=== PATIENT | female | born 1945 | race Hispanic/Latino ===

== ENCOUNTER 2020-07-15 21:06 | Inpatient (IN) | payer MEDICARE ==
[2020-07-16] MEDS ORDERED: ACETAMINOPHEN 500 MG TAB PO PRN (08:00)
[2020-07-16] MEDS: DULoxetine 30 MG CAP PO SCH (13:23)
[2020-07-16] MEDS: clonazePAM 0.5 MG TAB PO SCH ×2 (13:23→22:23)
[2020-07-16] MEDS: DOCUSATE SODIUM 100 MG CAP PO SCH ×2 (13:23→22:23)
[2020-07-16] MEDS: MELOXICAM 7.5 MG TAB PO SCH (13:23)
--- NOTE | 2020-07-16 13:39 | Consultation ---
History of Present Illness - Reason for Consult Consult date: 07/16/20 Requesting physician: LEX CAMPOS - History of Present Illness 75 YO Female with Obesity, Vascular Dementia, Cerebral Atherosclerosis, CAD admitted to [facility] psych unit for Psychiatric stabilization. Consult placed by Dr. Campos for medical management. Patient seen and evaluated in the recreation room. Patient cooperative with examiner interview. Patient denies fever, chills, chest pain, palpitation, productive cough, recent ill contacts. Patient currently asymptomatic with previous COVID-19 infection. No reported nursing events. Past History Past Medical History: CAD, other (See HPI) Past Surgical History: No surgical history, Other (Reviewed) Social history: single. denies: smoking, alcohol abuse, prescription drug abuse Family history: hypertension Medications and Allergies Allergies Allergy/AdvReac Type Severity Reaction Status Date / Time No Known Allergies Allergy Unverified 07/16/20 05:14 Home Medications Medication Instructions Recorded Confirmed Last Taken Type Acetaminophen [Non-Aspirin Extra 1,000 mg PO PRN 07/16/20 07/16/20 Unknown History Strength] DULoxetine [Cymbalta] 60 mg PO QDAY 07/16/20 07/16/20 Unknown History Docusate Sodium [Colace] 100 mg PO BID 07/16/20 07/16/20 Unknown History Meloxicam [Mobic] 7.5 mg PO QDAY 07/16/20 07/16/20 Unknown History clonazePAM [Klonopin] 1 mg PO BID 07/16/20 07/16/20 Unknown History Active Meds: Active Medications Acetaminophen (Tylenol) 1,000 mg PO Q6H PRN PRN Reason: Pain, Mild (1-3) Clonazepam (Klonopin) 1 mg PO BID [facility] Last Admin: 07/16/20 13:23 Dose: Not Given Documented by: Docusate Sodium (Colace) 100 mg PO BID [facility] Last Admin: 07/16/20 13:23 Dose: Not Given Documented by: Duloxetine HCl (Cymbalta) 60 mg PO QDAY [facility] Last Admin: 07/16/20 13:23 Dose: Not Given Documented by: Melatonin (Melatonin) 5 mg PO QHS PRN PRN Reason: Sleep Meloxicam (Mobic) 7.5 mg PO QDAY [facility] Last Admin: 07/16/20 13:23 Dose: Not Given Documented by: Trazodone HCl (Desyrel) 50 mg PO QHS [facility] Review of Systems Constitutional: no weight loss, no weight gain, no fever Ears, nose, mouth and throat: no ear pain, no ear discharge, no nasal congestion Breasts: no change in shape Cardiovascular: no chest pain, no orthopnea, no rapid/irregular heart beat, no edema, no lightheadedness Respiratory: no cough, no excessive sputum, no hemoptysis Gastrointestinal: no abdominal pain, no vomiting Genitourinary Female: no dysuria, no urinary frequency, no urgency Rectal: no pain, no incontinence, no bleeding Musculoskeletal: no neck pain, no shooting arm pain, no shooting leg pain Integumentary: no pruritis, no wounds, no jaundice, no boils Neurological: no paralysis, no weakness, no numbness, no tingling, no seizures Psychiatric: no memory loss, no insomnia, no change in appetite Endocrine: no cold intolerance, no heat intolerance, no excessive thirst, no polydipsia, no nocturia, no excessive sweating Hematologic/Lymphatic: no easy bruising Allergic/Immunologic: no urticaria, no wheezing Exam - Constitutional General appearance: Present: obese - EENT Eyes: Present: PERRL ENT: hearing intact, clear oral mucosa - Neck Neck: Present: supple, normal ROM - Respiratory Respiratory effort: normal Respiratory: bilateral: CTA - Cardiovascular Heart Sounds: Present: S1 & S2. Absent: rub, click - Extremities Extremities: pulses symmetrical, No edema Peripheral Pulses: within normal limits - Abdominal General gastrointestinal: Present: soft, non-tender, non-distended, normal bowel sounds Female genitourinary: Present: normal - Integumentary Integumentary: Present: clear, warm, dry - Musculoskeletal Musculoskeletal: gait normal, strength equal bilaterally - Psychiatric Psychiatric: appropriate mood/affect, intact judgment & insight - Neurologic Neurologic: CNII-XII intact, moves all extremities Assessment and Plan - Patient Problems (1) Vascular dementia Current Visit: Yes Status: Acute Qualifiers: Dementia behavioral disturbance: with behavioral disturbance Qualified Code(s): F01.51 - Vascular dementia with behavioral disturbance Plan to address problem: Verbal prompting, verbal redirection, supportive care, benzodiazepine therapy PRN. (2) Cerebral atherosclerosis Current Visit: Yes Status: Acute Plan to address problem: Risk factor reduction therapy, antiplatelet therapy, supportive care. (3) Obesity Current Visit: Yes Status: Acute Plan to address problem: Balanced diet, increase physical activity at discharge. (4) Coronary artery disease Current Visit: Yes Status: Acute Qualifiers: Associated angina: without angina Plan to address problem: Balanced diet, risk factor reduction therapy, statin therapy as clinically indicated. (5) UTI (urinary tract infection) Current Visit: Yes Status: Acute Qualifiers: Encounter type: initial encounter Plan to address problem: Continue Macrobid for 7 days.
[2020-07-16 17:58] LABS: Bacteria,Urine 1+ /HPF (Negative); Mucus,Urine 3+ /HPF
[2020-07-16 18:09] LABS: Bilirubin,Urine NEG (Negative); Blood,Urine SM (Negative); Color,Urine Yellow (Yellow); Hyaline Casts,Urine 12 /LPF; Protein,Urine <15 mg/dL mg/dL (Negative); Urobilinogen,Urine < 2.0 mg/dL (<2.0)
[2020-07-16] MEDS ORDERED: MELATONIN 5 MG TAB PO PRN (22:00)
[2020-07-16] MEDS: traZODone 50 MG TAB PO SCH (22:23)
--- NOTE | 2020-07-17 07:42 | History and Physical Report ---
GP History & Physical - History of Present Illness Date of admission: 07/16/20 Date of Examination: 07/17/20 History of Present Illness: HPI Patient is a 75 year old retired female who lives alone with past psychiatric history of depression and anxiety and significant past medical history of coronary artery disease who presented to [facility] after daughter found her at home sitting next to alert appears to saying she wanted to end her life. Patient reports she has been feeling very lonely depressed and sad, states she has children who does not really seem to check up on her or care about her. Says her daughter works most of the time but she to some extent checks up on her but her sons do not since she has been living alone she has been having so many thoughts which was also complicated by recent diagnosis of COVID-19. Patient endorses nightmares, she is usually had dreams that would like [place] celebration or trip with family but at end of dreams she ends up alone, afraid and confused. Patient reported poor energy and decreased interest in doing activities. Endorsed having suicidal thoughts when she was found. PATIENT WAS SEEN WITH FULL MASK and GOWN Per Transfer note: " Ms. Bermeo had reported to initial ED Provider that she has been feeling very sad for the last 2 moths, and does not know why, amd endorses a feeling of wanting to end her life and that she would like to shoot self". PAST PSYCHIATRIC HISTORY: Diagnoses: depression and anxiety Suicide attempts or Self-harm behavior Yes Prior psychiatric hospitalizations: Yes Substance Abuse history: None reported Previous psychiatric medications tried: Yes cymbalta Outpatient treatment: yes PAST MEDICAL HISTORY: CAD Family Psychiatric History: None reported or documented SOCIAL HISTORY Marital Status: Living Arrangements: With self Employment Status: Retired Access to guns/weapons: Yes Education: High school History of Abuse:None reported Legal History: REVIEW OF SYSTEMS Constitutional: Negative for weight loss ENT: Negative for stridor Respiratory: Negative for cough or hemoptysis All other systems reviewed and are negative MENTAL STATUS EXAMINATION General Appearance and Behavior: Age appropriate, good hygiene, wearing appropriate clothes, lying in bed, good eye contact, cooperative politee with questioning. Cooperation: Participating/engaged, Psychomotor Behavior: , unremarkable and within normal limits Mood: Depressed, Affect and affective range: decreased range, depressed Thought Process: Fluent/Logical, Thought Content: Within reality Speech: Normal volume, Regular rate and rhythm, Intellectual Functioning: Average Suicidal Ideation: Suicidal Homicidal Ideation: Denies HI Impulse Control: Impaired/Unimpaired Insight and Judgment: Normal insight and judgment Memory: Normal, Attention: Normal Orientation: Alert, oriented, anxious Patient scored 27 on her SLUMS EXAM Assessment and Plan - Psychiatric problem (1) MDD (major depressive disorder) Current Visit: Yes Status: Acute Treatment Plan Restarted home medications Patient admitted for inpatient psychiatric evaluation, medication adjustment and close monitoring The patient's behavior, mood, sleep and appetite will be closely monitored. Patient enrolled in individual and group therapeutic sessions and encouraged to attend. Patient provided with a safe and structured environment. Patient's physical health needs will be addressed by the Hospitalist. Hospitalist Consulted Labs including CBC, CMP, Lipid profile and Hemoglobin A1C levels ordered for baseline reference Social Assessment will be completed and the [facility] Treater will work with patient and family to ensure a suitable and safe disposition Medication adjustment will be made as clinically indicated Usual Wellness Hindu/Preservation: - Start Trazodone 50 mg po QHS & 50 mg po QHS PRN between 10 PM & 2 AM for insomnia - Start Melatonin 5 mg po QHS to promote circadian rhythm - Start [place]-3 for brain health, reduce impulsivity, and as adjunctive treatment for mood disorder, continue upon discharge given overall benefits. - Start B1 prophylaxis with 200 mg po for 5 days The patient agreed on the treatment plan, understood the risk, benefit, alternative treatment, potential consequence of no treatment, and gave informed consent. Initial Certification Inpatient psych services: I certify that the inpatient psychiatric services are required for treatment that could reasonably be expected to improve the patient's condition. Estimated days: 7 Post hospital care: primary care provider, psychiatric provider Legal Status: Voluntary Patient Problems: Current Active Problems MDD (major depressive disorder) (Acute) Reaction to Hospitalization: Accepting Medications and Allergies Allergies Allergy/AdvReac Type Severity Reaction Status Date / Time No Known Allergies Allergy Unverified 07/16/20 05:14 Home Medications Medication Instructions Recorded Confirmed Last Taken Type Acetaminophen [Non-Aspirin Extra 1,000 mg PO PRN 07/16/20 07/16/20 Unknown History Strength] DULoxetine [Cymbalta] 60 mg PO QDAY 07/16/20 07/16/20 Unknown History Docusate Sodium [Colace] 100 mg PO BID 07/16/20 07/16/20 Unknown History Meloxicam [Mobic] 7.5 mg PO QDAY 07/16/20 07/16/20 Unknown History clonazePAM [Klonopin] 1 mg PO BID 07/16/20 07/16/20 Unknown History Active Meds: Active Medications Acetaminophen (Tylenol) 1,000 mg PO Q6H PRN PRN Reason: Pain, Mild (1-3) Clonazepam (Klonopin) 1 mg PO BID [facility] Last Admin: 07/16/20 22:23 Dose: 1 mg Documented by: Docusate Sodium (Colace) 100 mg PO BID [facility] Last Admin: 07/16/20 22:23 Dose: 100 mg Documented by: Duloxetine HCl (Cymbalta) 60 mg PO QDAY [facility] Last Admin: 07/16/20 13:23 Dose: Not Given Documented by: Melatonin (Melatonin) 5 mg PO QHS PRN PRN Reason: Sleep Meloxicam (Mobic) 7.5 mg PO QDAY [facility] Last Admin: 07/16/20 13:23 Dose: Not Given Documented by: Trazodone HCl (Desyrel) 50 mg PO QHS [facility] Last Admin: 07/16/20 22:23 Dose: 50 mg Documented by: Results - Results Labs/Vitals: Laboratory Last Values POC Glucose 91 (70-105) 07/16/20 23:38 Urine Color Yellow (Yellow) 07/16/20 Unknown Urine Turbidity Slightly-cloudy (Clear) 07/16/20 Unknown Urine pH 5.0 (5.0-7.0) 07/16/20 Unknown Ur Specific [place] 1.024 (1.003-1.030) 07/16/20 Unknown Urine Protein <15 mg/dl mg/dL (Negative) 07/16/20 Unknown Urine Glucose (UA) Neg mg/dL (Negative) 07/16/20 Unknown Urine Ketones Neg mg/dL (Negative) 07/16/20 Unknown Urine Blood Sm (Negative) 07/16/20 Unknown Urine Nitrite Neg (Negative) 07/16/20 Unknown Ur Reducing Substances Not Reportable 07/16/20 Unknown Urine Bilirubin Neg (Negative) 07/16/20 Unknown Urine Ictotest Not Reportable 07/16/20 Unknown Urine Urobilinogen < 2.0 mg/dL (<2.0) 07/16/20 Unknown Ur Leukocyte Esterase Lg (Negative) 07/16/20 Unknown Urine WBC (Auto) 46.0 /HPF (0.0-6.0) H 07/16/20 Unknown Urine RBC (Auto) 16.0 /HPF (0.0-6.0) 07/16/20 Unknown U Epithel Cells (Auto) 7.0 /HPF (0-13.0) 07/16/20 Unknown Urine Bacteria (Auto) 1+ /HPF (Negative) 07/16/20 Unknown Hyaline Casts 12 /LPF 07/16/20 Unknown Urine Mucus 3+ /HPF 07/16/20 Unknown Last Vital Signs Temp 98.5 F 07/16/20 22:00 Pulse 89 07/16/20 22:00 Resp 18 07/16/20 22:00 BP 129/64 07/16/20 22:00 Pulse Ox 95 07/16/20 22:00 Physical Examination - Constitutional Vitals: Vital Signs Temp Pulse Resp BP Pulse Ox 98.5 F 89 18 129/64 95 07/16/20 22:00 07/16/20 22:00 07/16/20 22:00 07/16/20 22:00 07/16/20 22:00 Temperature -Last 24 Hours Temperature 98.5 F Temperature 98.9 F Mental Status Exam - Vital signs Last Vital Signs Temp 98.5 F 07/16/20 22:00 Pulse 89 07/16/20 22:00 Resp 18 07/16/20 22:00 BP 129/64 07/16/20 22:00 Pulse Ox 95 07/16/20 22:00 Assessment and Plan - Psychiatric problem (1) MDD (major depressive disorder) Current Visit: Yes Status: Acute Physician Certification - Certification Statement Physician Certification Statement: This is an acknowledgement statement that OSEAS BERMEO is a 75 year old F who requires inpatient psychiatric admission for treatment which could reasonably be expected to improve the patient's condition for Estimated period of time patient will need to remain in the hospital: [ ] Plan for post-hospital care: [ ]
[2020-07-17] MEDS: DULoxetine 30 MG CAP PO SCH (11:08)
[2020-07-17] MEDS: MELOXICAM 7.5 MG TAB PO SCH (11:08)
[2020-07-17] MEDS: DOCUSATE SODIUM 100 MG CAP PO SCH ×2 (11:08→21:41)
[2020-07-17] MEDS: NITROFURANTOIN MONOHYD/M-CRYST 100 MG CAP PO SCH ×2 (13:33→21:42)
[2020-07-17] MEDS: clonazePAM 0.5 MG TAB PO SCH ×2 (19:14→21:42)
--- NOTE | 2020-07-17 21:17 | Progress Note ---
Assessment and Plan - Patient Problems (1) Vascular dementia Current Visit: Yes Status: Acute Qualifiers: Dementia behavioral disturbance: with behavioral disturbance Qualified Code(s): F01.51 - Vascular dementia with behavioral disturbance Plan to address problem: Verbal prompting, verbal redirection, supportive care, benzodiazepine therapy PRN. (2) Cerebral atherosclerosis Current Visit: Yes Status: Acute Plan to address problem: Risk factor reduction therapy, antiplatelet therapy, supportive care. (3) Obesity Current Visit: Yes Status: Acute Plan to address problem: Balanced diet, increase physical activity at discharge. (4) Coronary artery disease Current Visit: Yes Status: Acute Qualifiers: Associated angina: without angina Plan to address problem: Balanced diet, risk factor reduction therapy, statin therapy as clinically indicated. (5) UTI (urinary tract infection) Current Visit: Yes Status: Acute Qualifiers: Encounter type: initial encounter Plan to address problem: Continue Macrobid for 7 days. History Interval history: 75 YO Female with Obesity, Vascular Dementia, Cerebral Atherosclerosis, CAD admitted to [facility] psych unit for Psychiatric stabilization. Patient seen and evaluated in the recreation room. Patient cooperative with exam and interview. Patient denies fever, chills, chest pain, palpitation, productive cough, recent ill contacts. Patient remains asymptomatic from previous COVID-19 infection. No reported nursing events. Hospitalist Physical - Constitutional Vitals: Temp Pulse Resp BP Pulse Ox 98.5 F 89 18 129/64 95 07/16/20 22:00 07/16/20 22:00 07/16/20 22:00 07/16/20 22:00 07/16/20 22:00 General appearance: Present: obese - EENT Eyes: Present: PERRL, EOM intact ENT: hearing intact - Neck Neck: Present: supple - Respiratory Respiratory: bilateral: CTA - Cardiovascular Rhythm: regular Heart Sounds: Present: S1 & S2 Peripheral Pulses: within normal limits - Abdominal General gastrointestinal: soft, non-tender, non-distended - Integumentary Integumentary: Present: clear, dry - Psychiatric Psychiatric: cooperative - Neurologic Neurologic: CNII-XII intact Results - Labs Labs: Laboratory Last Values POC Glucose 91 (70-105) 07/16/20 23:38 Urine Color Yellow (Yellow) 07/16/20 Unknown Urine Turbidity Slightly-cloudy (Clear) 07/16/20 Unknown Urine pH 5.0 (5.0-7.0) 07/16/20 Unknown Ur Specific [place] 1.024 (1.003-1.030) 07/16/20 Unknown Urine Protein <15 mg/dl mg/dL (Negative) 07/16/20 Unknown Urine Glucose (UA) Neg mg/dL (Negative) 07/16/20 Unknown Urine Ketones Neg mg/dL (Negative) 07/16/20 Unknown Urine Blood Sm (Negative) 07/16/20 Unknown Urine Nitrite Neg (Negative) 07/16/20 Unknown Ur Reducing Substances Not Reportable 07/16/20 Unknown Urine Bilirubin Neg (Negative) 07/16/20 Unknown Urine Ictotest Not Reportable 07/16/20 Unknown Urine Urobilinogen < 2.0 mg/dL (<2.0) 07/16/20 Unknown Ur Leukocyte Esterase Lg (Negative) 07/16/20 Unknown Urine WBC (Auto) 46.0 /HPF (0.0-6.0) H 07/16/20 Unknown Urine RBC (Auto) 16.0 /HPF (0.0-6.0) 07/16/20 Unknown U Epithel Cells (Auto) 7.0 /HPF (0-13.0) 07/16/20 Unknown Urine Bacteria (Auto) 1+ /HPF (Negative) 07/16/20 Unknown Hyaline Casts 12 /LPF 07/16/20 Unknown Urine Mucus 3+ /HPF 07/16/20 Unknown Coronavirus (PCR) Negative (Negative) 07/17/20 11:16 Microbiology: Microbiology 07/16/20 Unknown Urine,Clean Catch Urine Culture - Preliminary [place]/IV: Voiding Method Toilet Active Medications - Current Medications Current Medications: Generic Name Dose Route Start Last Admin Trade Name Freq PRN Reason Stop Dose Admin Acetaminophen 1,000 mg 07/16/20 08:00 Tylenol PO Q6H PRN Pain, Mild (1-3) Clonazepam 0.5 mg 07/17/20 10:22 Klonopin PO BID [facility] Docusate Sodium 100 mg 07/16/20 10:00 07/17/20 11:08 Colace PO 100 mg BID [facility] Administration Duloxetine HCl 60 mg 07/16/20 10:00 07/17/20 11:08 Cymbalta PO 60 mg QDAY [facility] Administration Melatonin 5 mg 07/16/20 22:00 Melatonin PO QHS PRN Sleep Meloxicam 7.5 mg 07/16/20 10:00 07/17/20 11:08 Mobic PO 7.5 mg QDAY [facility] Administration Nitrofurantoin Macrocrystals 100 mg 07/17/20 11:00 07/17/20 13:33 Macrobid PO 07/21/20 22:01 100 mg BID [facility] Administration Trazodone HCl 50 mg 07/16/20 22:00 07/16/20 22:23 Desyrel PO 50 mg QHS [facility] Administration
[2020-07-17] MEDS: traZODone 50 MG TAB PO SCH (21:42)
[2020-07-17] MEDS ORDERED: DOCUSATE SODIUM 100 MG CAP PO SCH (22:00)
--- NOTE | 2020-07-18 07:29 | Progress Note ---
Subjective Date of service: 07/18/20 Principal diagnosis: MDD Subjective Comment: Per Psych Nurse: Pt received in room reading her Bible. "I have been reading a lot to keep me busy." States she cannot really remember if she was going to kill herself the day she placed her gun on the dress or she pulled it out to have it cleaned as she wanted to do for a long a time. However, she reports she been lonely for a long time, though. Denies current SI with no HI. Denies pain. No acute distress observed and none reported Will continue to monitor for safety. REVIEW OF SYSTEMS Constitutional: Negative for weight loss ENT: Negative for stridor Respiratory: Negative for cough or hemoptysis All other systems reviewed and are negative MENTAL STATUS EXAMINATION General Appearance and Behavior: Age appropriate, good hygiene, wearing appropriate clothes, lying in bed, good eye contact, cooperative politee with questioning. Cooperation: Participating/engaged, Psychomotor Behavior: , unremarkable and within normal limits Mood: Depressed, Affect and affective range: decreased range, depressed Thought Process: Fluent/Logical, Thought Content: Within reality Speech: Normal volume, Regular rate and rhythm, Intellectual Functioning: Average Suicidal Ideation: Suicidal Homicidal Ideation: Denies HI Impulse Control: Impaired/Unimpaired Insight and Judgment: Normal insight and judgment Memory: Normal, Attention: Normal Orientation: Alert, oriented, anxious Patient scored 27 on her SLUMS EXAM Assessment and Plan - Psychiatric problem (1) MDD (major depressive disorder) Current Visit: Yes Status: Acute Treatment Plan Restarted home medications Patient admitted for inpatient psychiatric evaluation, medication adjustment and close monitoring The patient's behavior, mood, sleep and appetite will be closely monitored. Patient enrolled in individual and group therapeutic sessions and encouraged to attend. Patient provided with a safe and structured environment. Patient's physical health needs will be addressed by the Hospitalist. Hospitalist Consulted Labs including CBC, CMP, Lipid profile and Hemoglobin A1C levels ordered for baseline reference Social Assessment will be completed and the Counterperson will work with patient and family to ensure a suitable and safe disposition Medication adjustment will be made as clinically indicated Usual Wellness Amish/Preservation: - Start Trazodone 50 mg po QHS & 50 mg po QHS PRN between 10 PM & 2 AM for insomnia - Start Melatonin 5 mg po QHS to promote circadian rhythm - Start [place]-3 for brain health, reduce impulsivity, and as adjunctive treatment for mood disorder, continue upon discharge given overall benefits. - Start B1 prophylaxis with 200 mg po for 5 days The patient agreed on the treatment plan, understood the risk, benefit, alternative treatment, potential consequence of no treatment, and gave informed consent. Initial Certification Inpatient psych services: I certify that the inpatient psychiatric services are required for treatment that could reasonably be expected to improve the patient's condition. Estimated days: 7 Post hospital care: primary care provider, psychiatric provider Assessment and Plan - Patient Problems (1) MDD (major depressive disorder) Current Visit: Yes Status: Acute Medications and Allergies Allergies Allergy/AdvReac Type Severity Reaction Status Date / Time No Known Allergies Allergy Unverified 07/16/20 05:14 Home Medications Medication Instructions Recorded Confirmed Last Taken Type Acetaminophen [Non-Aspirin Extra 1,000 mg PO PRN 07/16/20 07/16/20 Unknown History Strength] DULoxetine [Cymbalta] 60 mg PO QDAY 07/16/20 07/16/20 Unknown History Docusate Sodium [Colace] 100 mg PO BID 07/16/20 07/16/20 Unknown History Meloxicam [Mobic] 7.5 mg PO QDAY 07/16/20 07/16/20 Unknown History clonazePAM [Klonopin] 1 mg PO BID 07/16/20 07/16/20 Unknown History Active Meds: Active Medications Acetaminophen (Tylenol) 1,000 mg PO Q6H PRN PRN Reason: Pain, Mild (1-3) Clonazepam (Klonopin) 0.5 mg PO BID [facility] Last Admin: 07/17/20 21:42 Dose: 0.5 mg Documented by: Docusate Sodium (Colace) 100 mg PO BID [facility] Last Admin: 07/17/20 21:41 Dose: 100 mg Documented by: Duloxetine HCl (Cymbalta) 60 mg PO QDAY [facility] Last Admin: 07/17/20 11:08 Dose: 60 mg Documented by: Melatonin (Melatonin) 5 mg PO QHS PRN PRN Reason: Sleep Meloxicam (Mobic) 7.5 mg PO QDAY [facility] Last Admin: 07/17/20 11:08 Dose: 7.5 mg Documented by: Nitrofurantoin Macrocrystals (Macrobid) 100 mg PO BID [facility] Stop: 07/21/20 22:01 Last Admin: 07/17/20 21:42 Dose: 100 mg Documented by: Trazodone HCl (Desyrel) 50 mg PO QHS [facility] Last Admin: 07/17/20 21:42 Dose: 50 mg Documented by: Results - Results Labs/Vitals: Laboratory Last Values POC Glucose 91 (70-105) 07/16/20 23:38 Urine Color Yellow (Yellow) 07/16/20 Unknown Urine Turbidity Slightly-cloudy (Clear) 07/16/20 Unknown Urine pH 5.0 (5.0-7.0) 07/16/20 Unknown Ur Specific [place] 1.024 (1.003-1.030) 07/16/20 Unknown Urine Protein <15 mg/dl mg/dL (Negative) 07/16/20 Unknown Urine Glucose (UA) Neg mg/dL (Negative) 07/16/20 Unknown Urine Ketones Neg mg/dL (Negative) 07/16/20 Unknown Urine Blood Sm (Negative) 07/16/20 Unknown Urine Nitrite Neg (Negative) 07/16/20 Unknown Ur Reducing Substances Not Reportable 07/16/20 Unknown Urine Bilirubin Neg (Negative) 07/16/20 Unknown Urine Ictotest Not Reportable 07/16/20 Unknown Urine Urobilinogen < 2.0 mg/dL (<2.0) 07/16/20 Unknown Ur Leukocyte Esterase Lg (Negative) 07/16/20 Unknown Urine WBC (Auto) 46.0 /HPF (0.0-6.0) H 07/16/20 Unknown Urine RBC (Auto) 16.0 /HPF (0.0-6.0) 07/16/20 Unknown U Epithel Cells (Auto) 7.0 /HPF (0-13.0) 07/16/20 Unknown Urine Bacteria (Auto) 1+ /HPF (Negative) 07/16/20 Unknown Hyaline Casts 12 /LPF 07/16/20 Unknown Urine Mucus 3+ /HPF 07/16/20 Unknown Coronavirus (PCR) Negative (Negative) 07/17/20 11:16 Last Vital Signs Temp 98.2 F 07/17/20 22:00 Pulse 99 H 07/17/20 22:00 Resp 18 07/17/20 22:00 BP 136/79 07/17/20 22:00 Pulse Ox 95 07/17/20 22:00
[2020-07-18] MEDS: NITROFURANTOIN MONOHYD/M-CRYST 100 MG CAP PO SCH ×2 (09:45→21:07)
[2020-07-18] MEDS: DULoxetine 30 MG CAP PO SCH (09:45)
[2020-07-18] MEDS: MELOXICAM 7.5 MG TAB PO SCH (09:46)
[2020-07-18] MEDS: DOCUSATE SODIUM 100 MG CAP PO SCH ×2 (09:46→21:07)
[2020-07-18] MEDS: clonazePAM 0.5 MG TAB PO SCH ×2 (09:47→21:07)
[2020-07-18] MEDS ORDERED: DULoxetine 30 MG CAP PO SCH (10:00)
[2020-07-18] MEDS ORDERED: MELOXICAM 7.5 MG TAB PO SCH (10:00)
[2020-07-18] MEDS: traZODone 50 MG TAB PO SCH (21:07)
[2020-07-18] MEDS: MELATONIN 5 MG TAB PO SCH (21:07)
--- NOTE | 2020-07-19 07:35 | Progress Note ---
Subjective Date of service: 07/19/20 Principal diagnosis: MDD Subjective Comment: Per Psych Nurse:pt spent the evening in bed reading the bible, pt is alert and orientedx3, calm and cooperative, able to make needs known, affect is bright and mood appropriate. pt reported that she is not depressed, pt states," I feel depressed if I am alone". pt denies SI/HI, denies A/V/H, medication compliant, no complaints voiced, no distress noted, will continue to monitor for safety. Psych Progress Patient seen this AM, reports low poor energy most of the time, says she would feel much better if she has some energy in her rather than sit all day. Patient endorses sleeping well, endorses feeling depressed but denies Suicidal ideation. Reason for continuing inpatient psychiatric hospitalization: Patient has been on cymbalta for years, no added benefit increasing above 60, will add Wellbutrin to current regimen which as added benefit of being more activating and observe for side effects. Patient agrees REVIEW OF SYSTEMS Constitutional: Negative for weight loss ENT: Negative for stridor Respiratory: Negative for cough or hemoptysis All other systems reviewed and are negative MENTAL STATUS EXAMINATION General Appearance and Behavior: Age appropriate, good hygiene, wearing appropriate clothes, lying in bed, good eye contact, cooperative politee with questioning. Cooperation: Participating/engaged, Psychomotor Behavior: , unremarkable and within normal limits Mood: Depressed, Affect and affective range: decreased range, depressed Thought Process: Fluent/Logical, Thought Content: Within reality Speech: Normal volume, Regular rate and rhythm, Intellectual Functioning: Average Suicidal Ideation: denies SI Homicidal Ideation: Denies HI Impulse Control:Unimpaired Insight and Judgment: Normal insight and judgment Memory: Normal, Attention: Normal Orientation: Alert, oriented, anxious Patient scored 27 on her SLUMS EXAM Assessment and Plan - Psychiatric problem (1) MDD (major depressive disorder) Current Visit: Yes Status: Acute Treatment Plan Restarted home medications, Wellbutrin 100 mg BID added to current regimen today Patient admitted for inpatient psychiatric evaluation, medication adjustment and close monitoring The patient's behavior, mood, sleep and appetite will be closely monitored. Patient enrolled in individual and group therapeutic sessions and encouraged to attend. Patient provided with a safe and structured environment. Patient's physical health needs will be addressed by the Hospitalist. Hospitalist Consulted Labs including CBC, CMP, Lipid profile and Hemoglobin A1C levels ordered for baseline reference Social Assessment will be completed and the Diesel Fitter Mechanic will work with patient and family to ensure a suitable and safe disposition Medication adjustment will be made as clinically indicated Usual Wellness Episcopal/Preservation: - Start Trazodone 50 mg po QHS & 50 mg po QHS PRN between 10 PM & 2 AM for insomnia - Start Melatonin 5 mg po QHS to promote circadian rhythm - Start [place]-3 for brain health, reduce impulsivity, and as adjunctive treatment for mood disorder, continue upon discharge given overall benefits. - Start B1 prophylaxis with 200 mg po for 5 days The patient agreed on the treatment plan, understood the risk, benefit, alternative treatment, potential consequence of no treatment, and gave informed consent. Initial Certification Inpatient psych services: I certify that the inpatient psychiatric services are required for treatment that could reasonably be expected to improve the patient's condition. Estimated days: 7 Post hospital care: primary care provider, psychiatric provider Assessment and Plan - Patient Problems (1) MDD (major depressive disorder) Current Visit: Yes Status: Acute Medications and Allergies Allergies Allergy/AdvReac Type Severity Reaction Status Date / Time No Known Allergies Allergy Unverified 07/16/20 05:14 Home Medications Medication Instructions Recorded Confirmed Last Taken Type Acetaminophen [Non-Aspirin Extra 1,000 mg PO PRN 07/16/20 07/16/20 Unknown History Strength] DULoxetine [Cymbalta] 60 mg PO QDAY 07/16/20 07/16/20 Unknown History Docusate Sodium [Colace] 100 mg PO BID 07/16/20 07/16/20 Unknown History Meloxicam [Mobic] 7.5 mg PO QDAY 07/16/20 07/16/20 Unknown History clonazePAM [Klonopin] 1 mg PO BID 07/16/20 07/16/20 Unknown History Active Meds: Active Medications Acetaminophen (Tylenol) 1,000 mg PO Q6H PRN PRN Reason: Pain, Mild (1-3) Clonazepam (Klonopin) 0.5 mg PO BID [facility] Last Admin: 07/18/20 21:07 Dose: 0.5 mg Documented by: Docusate Sodium (Colace) 100 mg PO BID [facility] Last Admin: 07/18/20 21:07 Dose: 100 mg Documented by: Duloxetine HCl (Cymbalta) 60 mg PO QDAY [facility] Last Admin: 07/18/20 09:45 Dose: 60 mg Documented by: Melatonin (Melatonin) 5 mg PO QHS [facility] Last Admin: 07/18/20 21:07 Dose: 5 mg Documented by: Meloxicam (Mobic) 7.5 mg PO QDAY [facility] Last Admin: 07/18/20 09:46 Dose: 7.5 mg Documented by: Nitrofurantoin Macrocrystals (Macrobid) 100 mg PO BID [facility] Stop: 07/21/20 22:01 Last Admin: 07/18/20 21:07 Dose: 100 mg Documented by: Trazodone HCl (Desyrel) 100 mg PO QHS [facility] Last Admin: 07/18/20 21:07 Dose: 100 mg Documented by: Results - Results Labs/Vitals: Laboratory Last Values POC Glucose 91 (70-105) 07/16/20 23:38 Urine Color Yellow (Yellow) 07/16/20 Unknown Urine Turbidity Slightly-cloudy (Clear) 07/16/20 Unknown Urine pH 5.0 (5.0-7.0) 07/16/20 Unknown Ur Specific [place] 1.024 (1.003-1.030) 07/16/20 Unknown Urine Protein <15 mg/dl mg/dL (Negative) 07/16/20 Unknown Urine Glucose (UA) Neg mg/dL (Negative) 07/16/20 Unknown Urine Ketones Neg mg/dL (Negative) 07/16/20 Unknown Urine Blood Sm (Negative) 07/16/20 Unknown Urine Nitrite Neg (Negative) 07/16/20 Unknown Ur Reducing Substances Not Reportable 07/16/20 Unknown Urine Bilirubin Neg (Negative) 07/16/20 Unknown Urine Ictotest Not Reportable 07/16/20 Unknown Urine Urobilinogen < 2.0 mg/dL (<2.0) 07/16/20 Unknown Ur Leukocyte Esterase Lg (Negative) 07/16/20 Unknown Urine WBC (Auto) 46.0 /HPF (0.0-6.0) H 07/16/20 Unknown Urine RBC (Auto) 16.0 /HPF (0.0-6.0) 07/16/20 Unknown U Epithel Cells (Auto) 7.0 /HPF (0-13.0) 07/16/20 Unknown Urine Bacteria (Auto) 1+ /HPF (Negative) 07/16/20 Unknown Hyaline Casts 12 /LPF 07/16/20 Unknown Urine Mucus 3+ /HPF 07/16/20 Unknown Coronavirus (PCR) Negative (Negative) 07/17/20 11:16 Last Vital Signs Temp 98.6 F 07/18/20 22:00 Pulse 82 07/18/20 22:00 Resp 18 07/18/20 22:00 BP 131/73 07/18/20 22:00 Pulse Ox 96 07/18/20 22:00
[2020-07-19] MEDS: DULoxetine 30 MG CAP PO SCH (09:23)
[2020-07-19] MEDS: clonazePAM 0.5 MG TAB PO SCH ×2 (09:23→21:23)
[2020-07-19] MEDS: NITROFURANTOIN MONOHYD/M-CRYST 100 MG CAP PO SCH ×2 (09:23→21:23)
[2020-07-19] MEDS: buPROPion 100 MG TAB PO SCH ×2 (09:24→13:37)
[2020-07-19] MEDS: MELOXICAM 7.5 MG TAB PO SCH (09:24)
[2020-07-19] MEDS: DOCUSATE SODIUM 100 MG CAP PO SCH ×2 (09:24→21:23)
[2020-07-19 20:15] LABS: Basophils # (Auto) 0.2 K/mm3 (0.0-0.1); Basophils % (Auto) 2.4 % (0.0-1.8); Eosinophils # (Auto) 0.3 K/mm3 (0.0-0.4); Eosinophils % (Auto) 3.8 % (0.0-4.3); Hematocrit 40.6 % (30.3-42.9); Hemoglobin 13.9 gm/dl (10.1-14.3); Lymphocytes % (Auto) 26.4 % (13.4-35.0); Mean Corpuscular HGB Conc 34 % (30-34); Mean Corpuscular Volume 89 fl (79-97); Monocytes # (Auto) 0.6 K/mm3 (0.0-0.8); Monocytes % (Auto) 7.5 % (0.0-7.3); Platelet Count 375 K/mm3 (140-440); Red Blood Count 4.57 M/mm3 (3.65-5.03); Red Cell Distribution Width 13.7 % (13.2-15.2)
[2020-07-19 20:26] LABS: Alanine Aminotransferase 40 units/L (7-56); Albumin 3.7 g/dL (3.9-5); Blood Urea Nitrogen 21 mg/dL (7-17); Calcium 9.3 mg/dL (8.4-10.2); Hemolysis Index 13
[2020-07-19 20:32] LABS: BUN/Creatinine Ratio 30
[2020-07-19 20:39] LABS: Chol/HDL Ratio 6.37 %; HDL Cholesterol 37 mg/dL (40-59); LDL Cholesterol,Direct 148 mg/dL (50-130)
[2020-07-19] MEDS: traZODone 50 MG TAB PO SCH (21:23)
[2020-07-19] MEDS: MELATONIN 5 MG TAB PO SCH (21:23)
--- NOTE | 2020-07-20 07:42 | Progress Note ---
Subjective Date of service: 07/20/20 Principal diagnosis: MDD Subjective Comment: Per Psych Nurse:pt spent the evening in activity room watching television as well as interacting with peers, alert and oriented x4, calm and cooperative, able to make needs known, bright affect and stable mood, pt is medication compliant, consumed 100% of snacks, no distress noted, will continue to monitor for safety. Psych Progress Patient seen this AM, bright affect, smiley presentation as she says morning. Patient reports so much better since yesterday afternoon, was very thankful, says she in a better position to go home now than she was some days ago. Patient denies suicidal thoughts or homicidal thoughts, improved sleep patter without nightmares. Reason for continuing inpatient psychiatric hospitalization: Continue current regimen and start planning for a safety discharge. REVIEW OF SYSTEMS Constitutional: Negative for weight loss ENT: Negative for stridor Respiratory: Negative for cough or hemoptysis All other systems reviewed and are negative MENTAL STATUS EXAMINATION General Appearance and Behavior: Age appropriate, good hygiene, wearing appropriate clothes, , good eye contact, cooperative polite with questioning. Cooperation: Participating/engaged, Psychomotor Behavior: , unremarkable and within normal limits Mood: "much better" Affect and affective range: congruent with mood Thought Process: Fluent/Logical, Thought Content: Within reality Speech: Normal volume, Regular rate and rhythm, Intellectual Functioning: Average Suicidal Ideation: denies SI Homicidal Ideation: Denies HI Impulse Control:Unimpaired Insight and Judgment: Normal insight and judgment Memory: Normal, Attention: Normal Orientation: Alert, oriented, anxious Patient scored 27 on her SLUMS EXAM Assessment and Plan - Psychiatric problem (1) MDD (major depressive disorder) Current Visit: Yes Status: Acute Treatment Plan Spoke with Daughter Chelle, says mom was off depression medication for a while and they usually check up on her atleast 4 times a day. Restarted home medications, Wellbutrin 100 mg BID, with plan to increase to 150 Patient admitted for inpatient psychiatric evaluation, medication adjustment and close monitoring The patient's behavior, mood, sleep and appetite will be closely monitored. Patient enrolled in individual and group therapeutic sessions and encouraged to attend. Patient provided with a safe and structured environment. Patient's physical health needs will be addressed by the Hospitalist. Hospitalist Consulted Labs including CBC, CMP, Lipid profile and Hemoglobin A1C levels ordered for baseline reference Social Assessment will be completed and the Mill Tender Washing will work with patient and family to ensure a suitable and safe disposition Medication adjustment will be made as clinically indicated Usual Wellness Advent/Preservation: - Start Trazodone 50 mg po QHS & 50 mg po QHS PRN between 10 PM & 2 AM for insomnia - Start Melatonin 5 mg po QHS to promote circadian rhythm - Start [place]-3 for brain health, reduce impulsivity, and as adjunctive treatment for mood disorder, continue upon discharge given overall benefits. - Start B1 prophylaxis with 200 mg po for 5 days The patient agreed on the treatment plan, understood the risk, benefit, alternative treatment, potential consequence of no treatment, and gave informed consent. Initial Certification Inpatient psych services: I certify that the inpatient psychiatric services are required for treatment that could reasonably be expected to improve the patient's condition. Estimated days: 3 Post hospital care: primary care provider, psychiatric provider Assessment and Plan - Patient Problems (1) MDD (major depressive disorder) Current Visit: Yes Status: Acute Medications and Allergies Allergies Allergy/AdvReac Type Severity Reaction Status Date / Time No Known Allergies Allergy Unverified 07/16/20 05:14 Home Medications Medication Instructions Recorded Confirmed Last Taken Type Acetaminophen [Non-Aspirin Extra 1,000 mg PO PRN 07/16/20 07/16/20 Unknown History Strength] DULoxetine [Cymbalta] 60 mg PO QDAY 07/16/20 07/16/20 Unknown History Docusate Sodium [Colace] 100 mg PO BID 07/16/20 07/16/20 Unknown History Meloxicam [Mobic] 7.5 mg PO QDAY 07/16/20 07/16/20 Unknown History clonazePAM [Klonopin] 1 mg PO BID 07/16/20 07/16/20 Unknown History Active Meds: Active Medications Acetaminophen (Tylenol) 1,000 mg PO Q6H PRN PRN Reason: Pain, Mild (1-3) Bupropion HCl (Wellbutrin) 100 mg PO 0900,1400 [facility] Last Admin: 07/19/20 13:37 Dose: 100 mg Documented by: Clonazepam (Klonopin) 0.5 mg PO BID [facility] Last Admin: 07/19/20 21:23 Dose: 0.5 mg Documented by: Docusate Sodium (Colace) 100 mg PO BID [facility] Last Admin: 07/19/20 21:23 Dose: 100 mg Documented by: Duloxetine HCl (Cymbalta) 60 mg PO QDAY [facility] Last Admin: 07/19/20 09:23 Dose: 60 mg Documented by: Melatonin (Melatonin) 5 mg PO QHS [facility] Last Admin: 07/19/20 21:23 Dose: 5 mg Documented by: Meloxicam (Mobic) 7.5 mg PO QDAY [facility] Last Admin: 07/19/20 09:24 Dose: 7.5 mg Documented by: Nitrofurantoin Macrocrystals (Macrobid) 100 mg PO BID [facility] Stop: 07/21/20 22:01 Last Admin: 07/19/20 21:23 Dose: 100 mg Documented by: Trazodone HCl (Desyrel) 100 mg PO QHS [facility] Last Admin: 07/19/20 21:23 Dose: 100 mg Documented by: Results - Results Labs/Vitals: Laboratory Last Values WBC 7.8 K/mm3 (4.5-11.0) 07/19/20 19:20 RBC 4.57 M/mm3 (3.65-5.03) 07/19/20 19:20 Hgb 13.9 gm/dl (10.1-14.3) 07/19/20 19:20 Hct 40.6 % (30.3-42.9) 07/19/20 19:20 MCV 89 fl (79-97) 07/19/20 19:20 MCH 30 pg (28-32) 07/19/20 19:20 MCHC 34 % (30-34) 07/19/20 19:20 RDW 13.7 % (13.2-15.2) 07/19/20 19:20 Plt Count 375 K/mm3 (140-440) 07/19/20 19:20 Lymph % (Auto) 26.4 % (13.4-35.0) 07/19/20 19:20 [place] % (Auto) 7.5 % (0.0-7.3) H 07/19/20 19:20 Eos % (Auto) 3.8 % (0.0-4.3) 07/19/20 19:20 Baso % (Auto) 2.4 % (0.0-1.8) H 07/19/20 19:20 Lymph # (Auto) 2.0 K/mm3 (1.2-5.4) 07/19/20 19:20 [place] # (Auto) 0.6 K/mm3 (0.0-0.8) 07/19/20 19:20 Eos # (Auto) 0.3 K/mm3 (0.0-0.4) 07/19/20 19:20 Baso # (Auto) 0.2 K/mm3 (0.0-0.1) H 07/19/20 19:20 Seg Neutrophils % 59.9 % (40.0-70.0) 07/19/20 19:20 Seg Neutrophils # 4.6 K/mm3 (1.8-7.7) 07/19/20 19:20 Sodium 139 mmol/L (137-145) 07/19/20 19:20 Potassium 3.9 mmol/L (3.6-5.0) 07/19/20 19:20 Chloride 102.4 mmol/L (98-107) 07/19/20 19:20 Carbon Dioxide 20 mmol/L (22-30) L 07/19/20 19:20 Anion Gap 21 mmol/L 07/19/20 19:20 BUN 21 mg/dL (7-17) H 07/19/20 19:20 Creatinine 0.7 mg/dL (0.6-1.2) 07/19/20 19:20 Estimated GFR > 60 ml/min 07/19/20 19:20 BUN/Creatinine Ratio 30 % 07/19/20 19:20 Glucose 127 mg/dL (65-100) H 07/19/20 19:20 POC Glucose 91 (70-105) 07/16/20 23:38 Hemoglobin A1c 5.7 % (4-6) 07/19/20 19:20 Calcium 9.3 mg/dL (8.4-10.2) 07/19/20 19:20 Total Bilirubin 0.30 mg/dL (0.1-1.2) 07/19/20 19:20 AST 32 units/L (5-40) 07/19/20 19:20 ALT 40 units/L (7-56) 07/19/20 19:20 Alkaline Phosphatase 94 units/L (35-129) 07/19/20 19:20 Total Protein 7.5 g/dL (6.3-8.2) 07/19/20 19:20 Albumin 3.7 g/dL (3.9-5) L 07/19/20 19:20 Albumin/Globulin Ratio 1.0 % 07/19/20 19:20 Triglycerides 393 mg/dL (2-149) H 07/19/20 19:20 Cholesterol 236 mg/dL (50-199) H 07/19/20 19:20 LDL Cholesterol Direct 148 mg/dL (50-130) H 07/19/20 19:20 HDL Cholesterol 37 mg/dL (40-59) L 07/19/20:20 Cholesterol/HDL Ratio 6.37 % 07/19/20 19:20 TSH 1.700 mlU/mL (0.270-4.200) 07/19/20 19:20 Urine Color Yellow (Yellow) 07/16/20 Unknown Urine Turbidity Slightly-cloudy (Clear) 07/16/20 Unknown Urine pH 5.0 (5.0-7.0) 07/16/[address] 1.024 (1.003-1.030) 07/16/20 Unknown Urine Protein <15 mg/dl mg/dL (Negative) 07/16/20 Unknown Urine Glucose (UA) Neg mg/dL (Negative) 07/16/20 Unknown Urine Ketones Neg mg/dL (Negative) 07/16/20 Unknown Urine Blood Sm (Negative) 07/16/20 Unknown Urine Nitrite Neg (Negative) 07/16/20 Unknown Ur Reducing Substances Not Reportable 07/16/20 Unknown Urine Bilirubin Neg (Negative) 07/16/20 Unknown Urine Ictotest Not Reportable 07/16/20 Unknown Urine Urobilinogen < 2.0 mg/dL (<2.0) 07/16/20 Unknown Ur Leukocyte Esterase Lg (Negative) 07/16/20 Unknown Urine WBC (Auto) 46.0 /HPF (0.0-6.0) H 07/16/20 Unknown Urine RBC (Auto) 16.0 /HPF (0.0-6.0) 07/16/20 Unknown U Epithel Cells (Auto) 7.0 /HPF (0-13.0) 07/16/20 Unknown Urine Bacteria (Auto) 1+ /HPF (Negative) 07/16/20 Unknown Hyaline Casts 12 /LPF 07/16/20 Unknown Urine Mucus 3+ /HPF 07/16/20 Unknown Coronavirus (PCR) Negative (Negative) 07/17/20 11:16 Last Vital Signs Temp 98.7 F 07/19/20 22:00 Pulse 94 H 07/19/20 22:00 Resp 18 07/19/20 22:00 BP 125/84 07/19/20 22:00 Pulse Ox 95 07/19/20 22:00
[2020-07-20] MEDS: buPROPion 100 MG TAB PO SCH ×2 (08:58→13:40)
[2020-07-20] MEDS: MELOXICAM 7.5 MG TAB PO SCH (09:00)
[2020-07-20] MEDS: DULoxetine 30 MG CAP PO SCH (09:00)
[2020-07-20] MEDS: clonazePAM 0.5 MG TAB PO SCH ×2 (09:00→22:12)
[2020-07-20] MEDS: DOCUSATE SODIUM 100 MG CAP PO SCH ×2 (09:00→22:11)
[2020-07-20] MEDS: NITROFURANTOIN MONOHYD/M-CRYST 100 MG CAP PO SCH ×2 (09:00→22:12)
[2020-07-20] MEDS: traZODone 50 MG TAB PO SCH (22:11)
[2020-07-20] MEDS: MELATONIN 5 MG TAB PO SCH (22:12)
--- NOTE | 2020-07-21 07:49 | Progress Note ---
Subjective Date of service: 07/21/20 Principal diagnosis: MDD Subjective Comment: Per Psych Nurse:Patient spent the day in the dayroom room, alert oriented X3, she is calm and cooperative, with bright effect, interacting with peers, pt is medication compliant, participate well in groups, denies si/hi and avh, no distress noted, will continue to monitor. Psych Progress Patient seen this AM, reports doing very fine, sleeping well, improved mood, denies suicidal thoughts, denies homicidal thoughts, no more night mac and has no medication complaints. Reason for continuing inpatient psychiatric hospitalization: Plan to discharge patient tomorrow. REVIEW OF SYSTEMS Constitutional: Negative for weight loss ENT: Negative for stridor Respiratory: Negative for cough or hemoptysis All other systems reviewed and are negative MENTAL STATUS EXAMINATION General Appearance and Behavior: Age appropriate, good hygiene, wearing appropriate clothes, , good eye contact, cooperative polite with questioning. Cooperation: Participating/engaged, Psychomotor Behavior: , unremarkable and within normal limits Mood: "much better" Affect and affective range: congruent with mood Thought Process: Fluent/Logical, Thought Content: Within reality Speech: Normal volume, Regular rate and rhythm, Intellectual Functioning: Average Suicidal Ideation: denies SI Homicidal Ideation: Denies HI Impulse Control:Unimpaired Insight and Judgment: Normal insight and judgment Memory: Normal, Attention: Normal Orientation: Alert, oriented Patient scored 27 on her SLUMS EXAM Assessment and Plan - Psychiatric problem (1) MDD (major depressive disorder) Current Visit: Yes Status: Acute Treatment Plan Continue current medications, wellbutrin increased to 150mg BID Patient admitted for inpatient psychiatric evaluation, medication adjustment and close monitoring The patient's behavior, mood, sleep and appetite will be closely monitored. Patient enrolled in individual and group therapeutic sessions and encouraged to attend. Patient provided with a safe and structured environment. Patient's physical health needs will be addressed by the Hospitalist. Hospitalist Consulted Labs including CBC, CMP, Lipid profile and Hemoglobin A1C levels ordered for baseline reference Social Assessment will be completed and the Healthcare Account Manager will work with patient and family to ensure a suitable and safe disposition Medication adjustment will be made as clinically indicated Usual Wellness Gnosticist/Preservation: - Start Trazodone 50 mg po QHS & 50 mg po QHS PRN between 10 PM & 2 AM for insomnia - Start Melatonin 5 mg po QHS to promote circadian rhythm - Start [place]-3 for brain health, reduce impulsivity, and as adjunctive treatment for mood disorder, continue upon discharge given overall benefits. - Start B1 prophylaxis with 200 mg po for 5 days The patient agreed on the treatment plan, understood the risk, benefit, alternative treatment, potential consequence of no treatment, and gave informed consent. Initial Certification Inpatient psych services: I certify that the inpatient psychiatric services are required for treatment that could reasonably be expected to improve the patient's condition. Estimated days: 1 Post hospital care: primary care provider, psychiatric provider Assessment and Plan - Patient Problems (1) MDD (major depressive disorder) Current Visit: Yes Status: Acute Medications and Allergies Allergies Allergy/AdvReac Type Severity Reaction Status Date / Time No Known Allergies Allergy Unverified 07/16/20 05:14 Home Medications Medication Instructions Recorded Confirmed Last Taken Type Acetaminophen [Non-Aspirin Extra 1,000 mg PO PRN 07/16/20 07/16/20 Unknown History Strength] DULoxetine [Cymbalta] 60 mg PO QDAY 07/16/20 07/16/20 Unknown History Docusate Sodium [Colace] 100 mg PO BID 07/16/20 07/16/20 Unknown History Meloxicam [Mobic] 7.5 mg PO QDAY 07/16/20 07/16/20 Unknown History clonazePAM [Klonopin] 1 mg PO BID 07/16/20 07/16/20 Unknown History Active Meds: Active Medications Acetaminophen (Tylenol) 1,000 mg PO Q6H PRN PRN Reason: Pain, Mild (1-3) Bupropion HCl (Wellbutrin) 100 mg PO 0900,1400 [facility] Last Admin: 07/20/20 13:40 Dose: 100 mg Documented by: Clonazepam (Klonopin) 0.5 mg PO BID [facility] Last Admin: 07/20/20 22:12 Dose: 0.5 mg Documented by: Docusate Sodium (Colace) 100 mg PO BID [facility] Last Admin: 07/20/20 22:11 Dose: 100 mg Documented by: Duloxetine HCl (Cymbalta) 60 mg PO QDAY [facility] Last Admin: 07/20/20 09:00 Dose: 60 mg Documented by: Melatonin (Melatonin) 5 mg PO QHS [facility] Last Admin: 07/20/20 22:12 Dose: 5 mg Documented by: Meloxicam (Mobic) 7.5 mg PO QDAY [facility] Last Admin: 07/20/20 09:00 Dose: 7.5 mg Documented by: Nitrofurantoin Macrocrystals (Macrobid) 100 mg PO BID [facility] Stop: 07/21/20 22:01 Last Admin: 07/20/20 22:12 Dose: 100 mg Documented by: Trazodone HCl (Desyrel) 100 mg PO QHS [facility] Last Admin: 07/20/20 22:11 Dose: 100 mg Documented by: Results - Results Labs/Vitals: Laboratory Last Values WBC 7.8 K/mm3 (4.5-11.0) 07/19/20 19:20 RBC 4.57 M/mm3 (3.65-5.03) 07/19/20 19:20 Hgb 13.9 gm/dl (10.1-14.3) 07/19/20 19:20 Hct 40.6 % (30.3-42.9) 07/19/20 19:20 MCV 89 fl (79-97) 07/19/20 19:20 MCH 30 pg (28-32) 07/19/20 19:20 MCHC 34 % (30-34) 07/19/20 19:20 RDW 13.7 % (13.2-15.2) 07/19/20 19:20 Plt Count 375 K/mm3 (140-440) 07/19/20 19:20 Lymph % (Auto) 26.4 % (13.4-35.0) 07/19/20 19:20 [place] % (Auto) 7.5 % (0.0-7.3) H 07/19/20 19:20 Eos % (Auto) 3.8 % (0.0-4.3) 07/19/20 19:20 Baso % (Auto) 2.4 % (0.0-1.8) H 07/19/20 19:20 Lymph # (Auto) 2.0 K/mm3 (1.2-5.4) 07/19/20 19:20 [place] # (Auto) 0.6 K/mm3 (0.0-0.8) 07/19/20 19:20 Eos # (Auto) 0.3 K/mm3 (0.0-0.4) 07/19/20 19:20 Baso # (Auto) 0.2 K/mm3 (0.0-0.1) H 07/19/20 19:20 Seg Neutrophils % 59.9 % (40.0-70.0) 07/19/20 19:20 Seg Neutrophils # 4.6 K/mm3 (1.8-7.7) 07/19/20 19:20 Sodium 139 mmol/L (137-145) 07/19/20 19:20 Potassium 3.9 mmol/L (3.6-5.0) 07/19/20 19:20 Chloride 102.4 mmol/L (98-107) 07/19/20 19:20 Carbon Dioxide 20 mmol/L (22-30) L 07/19/20 19:20 Anion Gap 21 mmol/L 07/19/20 19:20 BUN 21 mg/dL (7-17) H 07/19/20 19:20 Creatinine 0.7 mg/dL (0.6-1.2) 07/19/20 19:20 Estimated GFR > 60 ml/min 07/19/20 19:20 BUN/Creatinine Ratio 30 % 07/19/20 19:20 Glucose 127 mg/dL (65-100) H 07/19/20 19:20 POC Glucose 91 (70-105) 07/16/20 23:38 Hemoglobin A1c 5.7 % (4-6) 07/19/20 19:20 Calcium 9.3 mg/dL (8.4-10.2) 07/19/20 19:20 Total Bilirubin 0.30 mg/dL (0.1-1.2) 07/19/20 19:20 AST 32 units/L (5-40) 07/19/20 19:20 ALT 40 units/L (7-56) 07/19/20 19:20 Alkaline Phosphatase 94 units/L (35-129) 07/19/20 19:20 Total Protein 7.5 g/dL (6.3-8.2) 07/19/20 19:20 Albumin 3.7 g/dL (3.9-5) L 07/19/20 19:20 Albumin/Globulin Ratio 1.0 % 07/19/20 19:20 Triglycerides 393 mg/dL (2-149) H 07/19/20 19:20 Cholesterol 236 mg/dL (50-199) H 07/19/20 19:20 LDL Cholesterol Direct 148 mg/dL (50-130) H 07/19/20 19:20 HDL Cholesterol 37 mg/dL (40-59) L 07/19/20 19:20 Cholesterol/HDL Ratio 6.37 % 07/19/20 19:20 TSH 1.700 mlU/mL (0.270-4.200) 07/19/20 19:20 Urine Color Yellow (Yellow) 07/16/20 Unknown Urine Turbidity Slightly-cloudy (Clear) 07/16/20 Unknown Urine pH 5.0 (5.0-7.0) 07/16/20 Unknown Ur Specific [place] 1.024 (1.003-1.030) 07/16/20 Unknown Urine Protein <15 mg/dl mg/dL (Negative) 07/16/20 Unknown Urine Glucose (UA) Neg mg/dL (Negative) 07/16/20 Unknown Urine Ketones Neg mg/dL (Negative) 07/16/20 Unknown Urine Blood Sm (Negative) 07/16/20 Unknown Urine Nitrite Neg (Negative) 07/16/20 Unknown Ur Reducing Substances Not Reportable 07/16/20 Unknown Urine Bilirubin Neg (Negative) 07/16/20 Unknown Urine Ictotest Not Reportable 07/16/20 Unknown Urine Urobilinogen < 2.0 mg/dL (<2.0) 07/16/20 Unknown Ur Leukocyte Esterase Lg (Negative) 07/16/20 Unknown Urine WBC (Auto) 46.0 /HPF (0.0-6.0) H 07/16/20 Unknown Urine RBC (Auto) 16.0 /HPF (0.0-6.0) 07/16/20 Unknown U Epithel Cells (Auto) 7.0 /HPF (0-13.0) 07/16/20 Unknown Urine Bacteria (Auto) 1+ /HPF (Negative) 07/16/20 Unknown Hyaline Casts 12 /LPF 07/16/20 Unknown Urine Mucus 3+ /HPF 07/16/20 Unknown Coronavirus (PCR) Negative (Negative) 07/17/20 11:16 Last Vital Signs Temp 98.0 F 07/20/20 08:28 Pulse 90 07/20/20 19:03 Resp 18 07/20/20 09:00 BP 116/63 07/20/20 19:03 Pulse Ox 95 07/20/20 19:03
[2020-07-21] MEDS: DULoxetine 30 MG CAP PO SCH (10:46)
[2020-07-21] MEDS: MELOXICAM 7.5 MG TAB PO SCH (10:47)
[2020-07-21] MEDS: clonazePAM 0.5 MG TAB PO SCH ×2 (10:49→21:22)
[2020-07-21] MEDS: NITROFURANTOIN MONOHYD/M-CRYST 100 MG CAP PO SCH ×2 (10:49→21:21)
[2020-07-21] MEDS: DOCUSATE SODIUM 100 MG CAP PO SCH ×2 (10:49→21:22)
[2020-07-21] MEDS: buPROPion 100 MG TAB PO SCH ×2 (12:05→15:44)
[2020-07-21] MEDS: MELATONIN 5 MG TAB PO SCH (21:22)
[2020-07-21] MEDS ORDERED: traZODone 100 MG TAB PO SCH (22:00)
[2020-07-22] MEDS ORDERED: buPROPion 75 MG TAB PO SCH (09:00)
--- NOTE | 2020-07-22 09:19 | Progress Note ---
Subjective Date of service: 07/22/20 Principal diagnosis: MDD Subjective Comment: Per Psych Nurse:[id number] Received pt. awake coming out of her room, cheerful, responded to greetings. No complaint, will continue to monitor. Psych Progress Reason for continuing inpatient psychiatric hospitalization: Plan to discharge patient today REVIEW OF SYSTEMS Constitutional: Negative for weight loss ENT: Negative for stridor Respiratory: Negative for cough or hemoptysis All other systems reviewed and are negative MENTAL STATUS EXAMINATION General Appearance and Behavior: Age appropriate, good hygiene, wearing appropriate clothes, , good eye contact, cooperative polite with questioning. Cooperation: Participating/engaged, Psychomotor Behavior: , unremarkable and within normal limits Mood: "much better" Affect and affective range: congruent with mood Thought Process: Fluent/Logical, Thought Content: Within reality Speech: Normal volume, Regular rate and rhythm, Intellectual Functioning: Average Suicidal Ideation: denies SI Homicidal Ideation: Denies HI Impulse Control:Unimpaired Insight and Judgment: Normal insight and judgment Memory: Normal, Attention: Normal Orientation: Alert, oriented Patient scored 27 on her SLUMS EXAM Assessment and Plan - Psychiatric problem (1) MDD (major depressive disorder) Current Visit: Yes Status: Acute Treatment Plan Continue current medications, wellbutrin increased to 150mg BID Patient admitted for inpatient psychiatric evaluation, medication adjustment and close monitoring The patient's behavior, mood, sleep and appetite will be closely monitored. Patient enrolled in individual and group therapeutic sessions and encouraged to attend. Patient provided with a safe and structured environment. Patient's physical health needs will be addressed by the Hospitalist. Hospitalist Consulted Labs including CBC, CMP, Lipid profile and Hemoglobin A1C levels ordered for baseline reference Social Assessment will be completed and the Activities Counselor will work with patie nt and family to ensure a suitable and safe disposition Medication adjustment will be made as clinically indicated Usual Wellness Muslim/Preservation: - Start Trazodone 50 mg po QHS & 50 mg po QHS PRN between 10 PM & 2 AM for insomnia - Start Melatonin 5 mg po QHS to promote circadian rhythm - Start [place]-3 for brain health, reduce impulsivity, and as adjunctive treatment for mood disorder, continue upon discharge given overall benefits. - Start B1 prophylaxis with 200 mg po for 5 days The patient agreed on the treatment plan, understood the risk, benefit, alternative treatment, potential consequence of no treatment, and gave informed consent. Initial Certification Inpatient psych services: I certify that the inpatient psychiatric services are required for treatment that could reasonably be expected to improve the patient's condition. Estimated days: 1 Post hospital care: primary care provider, psychiatric provider Assessment and Plan - Patient Problems (1) MDD (major depressive disorder) Current Visit: Yes Status: Acute Medications and Allergies Allergies Allergy/AdvReac Type Severity Reaction Status Date / Time No Known Allergies Allergy Unverified 07/16/20 05:14 Home Medications Medication Instructions Recorded Confirmed Last Taken Type Acetaminophen [Non-Aspirin Extra 1,000 mg PO PRN 07/16/20 07/16/20 Unknown History Strength] DULoxetine [Cymbalta] 60 mg PO QDAY 07/16/20 07/16/20 Unknown History Docusate Sodium [Colace] 100 mg PO BID 07/16/20 07/16/20 Unknown History Meloxicam [Mobic] 7.5 mg PO QDAY 07/16/20 07/16/20 Unknown History clonazePAM [Klonopin] 1 mg PO BID 07/16/20 07/16/20 Unknown History Active Meds: Active Medications Acetaminophen (Tylenol) 1,000 mg PO Q6H PRN PRN Reason: Pain, Mild (1-3) Bupropion HCl (Wellbutrin) 150 mg PO 0900,1400 [facility] Clonazepam (Klonopin) 0.5 mg PO BID [facility] Last Admin: 07/21/20 21:22 Dose: 0.5 mg Documented by: Docusate Sodium (Colace) 100 mg PO BID [facility] Last Admin: 07/21/20 21:22 Dose: 100 mg Documented by: Duloxetine HCl (Cymbalta) 60 mg PO QDAY [facility] Last Admin: 07/21/20 10:46 Dose: 60 mg Documented by: Melatonin (Melatonin) 5 mg PO QHS [facility] Last Admin: 07/21/20 21:22 Dose: 5 mg Documented by: Meloxicam (Mobic) 7.5 mg PO QDAY [facility] Last Admin: 07/21/20 10:47 Dose: 7.5 mg Documented by: Trazodone HCl (Desyrel) 100 mg PO QHS [facility] Last Admin: 07/21/20 21:27 Dose: 100 mg Documented by: Results - Results Labs/Vitals: Laboratory Last Values WBC 7.8 K/mm3 (4.5-11.0) 07/19/20 19:20 RBC 4.57 M/mm3 (3.65-5.03) 07/19/20 19:20 Hgb 13.9 gm/dl (10.1-14.3) 07/19/20 19:20 Hct 40.6 % (30.3-42.9) 07/19/20 19:20 MCV 89 fl (79-97) 07/19/20 19:20 MCH 30 pg (28-32) 07/19/20 19:20 MCHC 34 % (30-34) 07/19/20 19:20 RDW 13.7 % (13.2-15.2) 07/19/20 19:20 Plt Count 375 K/mm3 (140-440) 07/19/20 19:20 Lymph % (Auto) 26.4 % (13.4-35.0) 07/19/20 19:20 [place] % (Auto) 7.5 % (0.0-7.3) H 07/19/20 19:20 Eos % (Auto) 3.8 % (0.0-4.3) 07/19/20 19:20 Baso % (Auto) 2.4 % (0.0-1.8) H 07/19/20 19:20 Lymph # (Auto) 2.0 K/mm3 (1.2-5.4) 07/19/20 19:20 [place] # (Auto) 0.6 K/mm3 (0.0-0.8) 07/19/20 19:20 Eos # (Auto) 0.3 K/mm3 (0.0-0.4) 07/19/20 19:20 Baso # (Auto) 0.2 K/mm3 (0.0-0.1) H 07/19/20 19:20 Seg Neutrophils % 59.9 % (40.0-70.0) 07/19/20 19: Seg Neutrophils # 4.6 K/mm3 (1.8-7.7) 07/19/20 19:20 Sodium 139 mmol/L (137-145) 07/19/20 19:20 Potassium 3.9 mmol/L (3.6-5.0) 07/19/20 19:20 Chloride 102.4 mmol/L (98-107) 07/19/20 19:20 Carbon Dioxide 20 mmol/L (22-30) L 07/19/20 19:20 Anion Gap 21 mmol/L 07/19/20 19:20 BUN 21 mg/dL (7-17) H 07/19/20 19:20 Creatinine 0.7 mg/dL (0.6-1.2) 07/19/20 19:20 Estimated GFR > 60 ml/min 07/19/20 19:20 BUN/Creatinine Ratio 30 % 07/19/20 19:20 Glucose 127 mg/dL (65-100) H 07/19/20 19:20 POC Glucose 91 (70-105) 07/16/20 23:38 Hemoglobin A1c 5.7 % (4-6) 07/19/20 19:20 Calcium 9.3 mg/dL (8.4-10.2) 07/19/20 19:20 Total Bilirubin 0.30 mg/dL (0.1-1.2) 07/19/20 19:20 AST 32 units/L (5-40) 07/19/20 19:20 ALT 40 units/L (7-56) 07/19/20 19:20 Alkaline Phosphatase 94 units/L (35-129) 07/19/20 19:20 Total Protein 7.5 g/dL (6.3-8.2) 07/19/20 19:20 Albumin 3.7 g/dL (3.9-5) L 07/19/20 19:20 Albumin/Globulin Ratio 1.0 % 07/19/20 19:20 Triglycerides 393 mg/dL (2-149) H 07/19/20 19:20 Cholesterol 236 mg/dL (50-199) H 07/19/20 19:20 LDL Cholesterol Direct 148 mg/dL (50-130) H 07/19/20 19:20 HDL Cholesterol 37 mg/dL (40-59) L 07/19/20 19:20 Cholesterol/HDL Ratio 6.37 % 07/19/20 19:20 TSH 1.700 mlU/mL (0.270-4.200) 07/19/20 19:20 Urine Color Yellow (Yellow) 07/16/20 Unknown Urine Turbidity Slightly-cloudy (Clear) 07/16/20 Unknown Urine pH 5.0 (5.0-7.0) 07/16/20 Unknown Ur Specific [place] 1.024 (1.003-1.030) 07/16/20 Unknown Urine Protein <15 mg/dl mg/dL (Negative) 07/16/20 Unknown Urine Glucose (UA) Neg mg/dL (Negative) 07/16/20 Unknown Urine Ketones Neg mg/dL (Negative) 07/16/20 Unknown Urine Blood Sm (Negative) 07/16/20 Unknown Urine Nitrite Neg (Negative) 07/16/20 Unknown Ur Reducing Substances Not Reportable 07/16/20 Unknown Urine Bilirubin Neg (Negative) 07/16/20 Unknown Urine Ictotest Not Reportable 07/16/20 Unknown Urine Urobilinogen < 2.0 mg/dL (<2.0) 07/16/20 Unknown Ur Leukocyte Esterase Lg (Negative) 07/16/20 Unknown Urine WBC (Auto) 46.0 /HPF (0.0-6.0) H 07/16/20 Unknown Urine RBC (Auto) 16.0 /HPF (0.0-6.0) 07/16/20 Unknown U Epithel Cells (Auto) 7.0 /HPF (0-13.0) 07/16/20 Unknown Urine Bacteria (Auto) 1+ /HPF (Negative) 07/16/20 Unknown Hyaline Casts 12 /LPF 07/16/20 Unknown Urine Mucus 3+ /HPF 07/16/20 Unknown Coronavirus (PCR) Negative (Negative) 07/17/20 11:16 Last Vital Signs Temp 98.2 F 07/21/20 19:22 Pulse 97 H 07/21/20 19:22 Resp 16 07/21/20 19:22 BP 129/71 07/21/20 19:22 Pulse Ox 90 07/21/20 19:22
--- NOTE | 2020-07-22 09:21 | Discharge Summary ---
Providers - Providers Date of Admission: 07/16/20 13:08 Date of discharge: 07/22/20 Attending physician: LEX CAMPOS MD 07/16/20 05:14 Consult to Physician [CONS] Routine Comment: Consulting Provider: JASEN PAL Physician Instructions: New admssion consult Reason For Exam: History and Physical Primary care physician: EMPLOYMENT PROGRAM REPRESENTATIVE Hospitalization Reason for admission: Danger to self Condition: Good Hospital course: The patient was provided inpatient psychiatric treatment with safe and supportive environment, group/individual therapy, psychiatric medication, medication adjustment, adverse effect monitor, medical evaluation, medical treatment, social service assessment, social support meeting, placement assessment and psycho-education. The patients mood, cognition, behavior, motivation, compliance to treatment and appreciation on family/social support are improved and stabilized. At the time of discharge, the patient had no suicidal ideas, no homicidal ideas, no aggressive thoughts, no endangering behavior and no debilitating adverse effects. The patient agareed on the treatment plan, understood the risk, benefit, alternative treatment, potential consequence of no treatment, and gave informed consent. Disposition: DC-01 TO HOME OR SELFCARE Allergies/Adverse Reactions: Allergies No Known Allergies Allergy (Unverified 07/16/20 05:14) Vital Signs: Last Vital Signs Temp 98.2 F 07/21/20 19: Pulse 97 H 07/21/20 19:22 Resp 16 07/21/20 19:22 BP 129/71 07/21/20 19: Pulse Ox 90 07/21/20 19:22 Last Lab: Laboratory Last Values WBC 7.8 K/mm3 (4.5-11.0) 07/19/20 19: RBC 4.57 M/mm3 (3.65-5.03) 07/19/20 19:20 Hgb 13.9 gm/dl (10.1-14.3) 07/19/20 19: Hct 40.6 % (30.3-42.9) 07/19/20 19: MCV 89 fl (79-97) 07/19/20 19:20 MCH 30 pg (28-32) 07/19/20 19:20 MCHC 34 % (30-34) 07/19/20 19:20 RDW 13.7 % (13.2-15.2) 10/07/20 19:20 Plt Count 375 K/mm3 (140-440) 07/19/20 19:20 Lymph % (Auto) 26.4 % (13.4-35.0) 07/19/20 19:20 [place] % (Auto) 7.5 % (0.0-7.3) H 07/19/20 19:20 Eos % (Auto) 3.8 % (0.0-4.3) 07/19/20 19:20 Baso % (Auto) 2.4 % (0.0-1.8) H 07/19/20 19:20 Lymph # (Auto) 2.0 K/mm3 (1.2-5.4) 07/19/20 19:20 [place] # (Auto) 0.6 K/mm3 (0.0-0.8) 07/19/20 19:20 Eos # (Auto) 0.3 K/mm3 (0.0-0.4) 07/19/20 19:20 Baso # (Auto) 0.2 K/mm3 (0.0-0.1) H 07/19/20 19:20 Seg Neutrophils % 59.9 % (40.0-70.0) 07/19/20 19:20 Seg Neutrophils # 4.6 K/mm3 (1.8-7.7) 07/19/20 19:20 Sodium 139 mmol/L (137-145) 07/19/20 19:20 Potassium 3.9 mmol/L (3.6-5.0) 07/19/20 19:20 Chloride 102.4 mmol/L (98-107) 07/19/20 19:20 Carbon Dioxide 20 mmol/L (22-30) L 07/19/20 19:20 Anion Gap 21 mmol/L 07/19/20 19:20 BUN 21 mg/dL (7-17) H 07/19/20 19:20 Creatinine 0.7 mg/dL (0.6-1.2) 07/19/20 19:20 Estimated GFR > 60 ml/min 07/19/20 19:20 BUN/Creatinine Ratio 30 % 07/19/20 19:20 Glucose 127 mg/dL (65-100) H 07/19/20 19:20 POC Glucose 91 (70-105) 07/16/20 23:38 Hemoglobin A1c 5.7 % (4-6) 07/19/20 19:20 Calcium 9.3 mg/dL (8.4-10.2) 07/19/20 19:20 Total Bilirubin 0.30 mg/dL (0.1-1.2) 07/19/20 19:20 AST 32 units/L (5-40) 07/19/20 19:20 ALT 40 units/L (7-56) 07/19/20 19:20 Alkaline Phosphatase 94 units/L (35-129) 07/19/20 19:20 Total Protein 7.5 g/dL (6.3-8.2) 07/19/20 19:20 Albumin 3.7 g/dL (3.9-5) L 07/19/20 19:20 Albumin/Globulin Ratio 1.0 % 07/19/20 19:20 Triglycerides 393 mg/dL (2-149) H 07/19/20 19:20 Cholesterol 236 mg/dL (50-199) H 07/19/20 19:20 LDL Cholesterol Direct 148 mg/dL (50-130) H 07/19/20 19:20 HDL Cholesterol 37 mg/dL (40-59) L 07/19/20 19:20 Cholesterol/HDL Ratio 6.37 % 07/19/20: TSH 1.700 mlU/mL (0.270-4.200) 07/19/20 19:20 Urine Color Yellow (Yellow) 07/16/20 Unknown Urine Turbidity Slightly-cloudy (Clear) 07/16/20 Unknown Urine pH 5.0 (5.0-7.0) 07/16/20 Unknown Ur Specific [place] 1.024 (1.003-1.030) 07/16/20 Unknown Urine Protein <15 mg/dl mg/dL (Negative) 07/16/20 Unknown Urine Glucose (UA) Neg mg/dL (Negative) 07/16/20 Unknown Urine Ketones Neg mg/dL (Negative) 07/16/20 Unknown Urine Blood Sm (Negative) 07/16/20 Unknown Urine Nitrite Neg (Negative) 07/16/20 Unknown Ur Reducing Substances Not Reportable 07/16/20 Unknown Urine Bilirubin Neg (Negative) 07/16/20 Unknown Urine Ictotest Not Reportable 07/16/20 Unknown Urine Urobilinogen < 2.0 mg/dL (<2.0) 07/16/20 Unknown Ur Leukocyte Esterase Lg (Negative) 07/16/20 Unknown Urine WBC (Auto) 46.0 /HPF (0.0-6.0) H 07/16/20 Unknown Urine RBC (Auto) 16.0 /HPF (0.0-6.0) 07/16/20 Unknown U Epithel Cells (Auto) 7.0 /HPF (0-13.0) 07/16/20 Unknown Urine Bacteria (Auto) 1+ /HPF (Negative) 07/16/20 Unknown Hyaline Casts 12 /LPF 07/16/20 Unknown Urine Mucus 3+ /HPF 07/16/20 Unknown Coronavirus (PCR) Negative (Negative) 07/17/20 11:16 - Discharge Diagnoses (1) MDD (major depressive disorder) Status: Acute Core Measure Documentation - Palliative Care Palliative Care/ Comfort Measures: Not Applicable - Core Measures Any of the following diagnoses?: none Exam - Constitutional Vitals: Temp Pulse Resp BP Pulse Ox 98.2 F 97 H 16 129/71 90 07/21/20 19:22 07/21/20 19:22 07/21/20 19:22 07/21/20 19:22 07/21/20 19:22 General appearance: Present: no acute distress - EENT Eyes: Present: PERRL, EOM intact, irregular pupil ENT: hearing intact, clear oral mucosa - Neck Neck: Present: supple, normal ROM - Respiratory Respiratory effort: normal - Abdominal General gastrointestinal: Present: deferred Female genitourinary: Present: deferred - Integumentary Integumentary: Present: clear, warm, dry Plan Care Plan Goals: Maintain good and stable mental health. Plan of Treatment: The patient should be compliant with medications, not to use drugs and not to drink alcohol. The patient understands that if suicidal ideas, homicidal ideas, or any endangering thoughts arise, the patient should immediately seek for emergent assistance including but not limited to crisis hot line and emergency room. Follow up with outpatient Psychiatrist and PCP within 7 - 14 days of discharge. Follow up with: PRIMARY CARE, [Primary Care Provider] - 7 Days Prescriptions: traZODone [Desyrel] 100 mg PO QHS #30 tablet DULoxetine [Cymbalta] 60 mg PO QDAY #30 capsule buPROPion [Wellbutrin] 150 mg PO 0900,1400 #60 tablet
[2020-07-22 09:46] VITALS: BP 114/60
[2020-07-22] MEDS: DULoxetine 30 MG CAP PO SCH (09:46)
[2020-07-22] MEDS: clonazePAM 0.5 MG TAB PO SCH (09:47)
[2020-07-22] MEDS: DOCUSATE SODIUM 100 MG CAP PO SCH (09:47)
[2020-07-22] MEDS: MELOXICAM 7.5 MG TAB PO SCH (09:54)
== END 2020-07-22 11:56 | disposition home or self-care (01) | DRG 884 ==
LOC: UNDOADMIN 21:06 → 3A 21:06 → 5A 07-16 13:08
PROVIDERS: ADMIT Psychiatry & Neurology Psychiatry; ATTEND Psychiatry & Neurology Psychiatry
DX: F03.91 Unspecified dementia, unspecified severity, with behavioral disturbance (principal); N39.0 Urinary tract infection, site not specified; F32.9 Major depressive disorder, single episode, unspecified; Z20.828 Contact with and (suspected) exposure to other viral communicable diseases; E66.9 Obesity, unspecified; Z68.34 Body mass index [BMI] 34.0-34.9, adult; Z71.3 Dietary counseling and surveillance; F01.50 Vascular dementia, unspecified severity, without behavioral disturbance, psychotic disturbance, mood disturbance, and anxiety; I25.10 Atherosclerotic heart disease of native coronary artery without angina pectoris; Z82.49 Family history of ischemic heart disease and other diseases of the circulatory system; I67.2 Cerebral atherosclerosis
CPT/HCPCS: 36415; 80053; 80061; 81001; 82962; 83036; 84443; 85025; 87086; G0378; U0003-CS